=== PATIENT | male | born 1955 | race Caucasian/White ===

== ENCOUNTER → 2018-04-10 | Outpatient (CLI) | payer OTHER ==
[2015-09-11 13:11] VITALS: BP 120/73
[~2018-04-10] MED LIST: DOCU-109 PO; MESA1.2T PO; OXYC-323 PO; OXYC-327 PO; Oxycodone Hcl/Acetaminophen PO; TAMS0.4C97 PO; no meds
--- NOTE | 2018-04-16 15:15 | SLEEP ---
DATE OF STUDY: 04/10/2018 ATTENDING PHYSICIAN: Dr. Calvin Quevedo. The patient is a 62-year-old who weighs 170 pounds and is 70 inches tall with a BMI of 24. The patient's Hammond score was 10. The patient underwent home sleep study performed by [facility]. Total recording time was 526 minutes. During the night study, the patient had 208 obstructive apneas, no central apneas, 48 mixed apneas and 42 hypopneas. The patient's apnea-hypopnea index was 34 per hour. No supine sleep was recorded. Oximetry study revealed an average oxygen saturation of 91% with the lowest of 75%. A 59 minutes were spent in oxygen saturation less than 90% and another 43 minutes with less than 85%. EKG monitoring revealed mean heart rate of 63 beats per minute. IMPRESSION: 1. Severe sleep apnea-hypopnea syndrome with an apnea-hypopnea index of 34 per hour. 2. Severe nocturnal hypoxia secondary to obstructive sleep apnea. RECOMMENDATIONS: 1. The patient should return for in-lab CPAP titration study. 2. Once optimum CPAP pressure is achieved, then follow up in 4-6 weeks to assess compliance with CPAP and to document clinical improvement. 3. Avoid EVALUATION ADVISOR depressants. 4. Cautioned regarding driving until symptoms of sleep apnea have resolved with the above recommendations. PAMELLA NIXON MD DR: KAYLYN/chito JOB#: [id number] / [id number] CALVIN Edmonds MD
== END | disposition home or self-care (01) ==
LOC: RT 10:06
PROVIDERS: ATTEND Internal Medicine Critical Care Medicine
DX: G47.33 Obstructive sleep apnea (adult) (pediatric) (principal)
CPT/HCPCS: G0399

== ENCOUNTER → 2018-05-09 | Outpatient (CLI) | payer OTHER ==
[2015-09-11 13:11] VITALS: BP 120/73
[~2018-05-09] MED LIST changes: +ZOLPIDEM 5 MG TABLET. PO ONE
--- NOTE | 2018-05-10 10:05 | SLEEP ---
DATE OF STUDY: 05/09/2018 ATTENDING PHYSICIAN: Dr. Joe Quevedo. The patient is 62 years old who weighs 170 pounds with a BMI of 24. The patient had a home sleep study and was found to have severe STEPHANY at an AHI of 34 per hour along with nocturnal hypoxia. The patient returned for in-lab CPAP titration study. During the night study, the patient spent 392 minutes in bed and slept for 327 minutes with a sleep efficiency of 83%. Sleep latency was 20 minutes with a REM latency of 68 minutes. Overall, sleep architecture showed normal stage 1 sleep, slightly reduced stage 2 sleep, increased slow wave and increased REM sleep. During the night study, the patient's EKG monitoring revealed normal sinus rhythm, average heart rate was 60 beats per minute. No arrhythmias seen. No PLMS observed. The patient was started on CPAP at 5 cm water and the patient remained throughout the night of the same pressure and slept for 327 minutes. The patient's AHI was reduced to 3 per hour and oxygen saturation remained above 90% with one spot desaturation of 87%. The patient used medium sized nasal pillows. IMPRESSION: 1. Severe sleep apnea diagnosed by home sleep study. 2. No evidence of period limb movements in sleep. RECOMMENDATIONS: 1. CPAP at 5 cm water completely eliminated the patient's sleep apnea and should be used on a nightly basis. 2. Follow up in 4-6 weeks to assess compliance with CPAP and to document clinical improvement. 3. Avoid MUSHROOM PRESS OPERATOR depressants. 4. Caution regarding driving until symptoms of sleep apnea resolve with CPAP. PAMELLA NIXON MD DR: KAYLYN/chito JOB#: [id number] / [id number] Dr. Joe Zheng
== END | disposition home or self-care (01) ==
LOC: RT 18:24
PROVIDERS: ATTEND Internal Medicine Critical Care Medicine
DX: G47.33 Obstructive sleep apnea (adult) (pediatric) (principal)
CPT/HCPCS: 95811

== ENCOUNTER 2018-10-13 05:28 | Emergency (ER) | payer OTHER ==
[~2018-10-13] VITALS: Ht 177.8 cm; Wt 78.0 kg
[~2018-10-13 05:28] MED LIST changes: +LIALDA1.2 GM PO; -MESA1.2T PO; -OXYC-323 PO; -OXYC-327 PO; +OXYC1TAB15 PO; +OXYC1TAB19 PO; -ZOLPIDEM 5 MG TABLET. PO ONE
[2018-10-13 05:58] LABS: BASO # 0.1 x10^3/uL (0.0-0.2); BASO % 1 % (0-3); EOS # 0.4 x10^3/uL (0.0-0.7); EOS % 5 % (0-3); HEMATOCRIT 45.5 % (39.0-53.0); HEMOGLOBIN 15.4 g/dL (13.0-17.5); LYMPH # 2.8 x10^3/uL (1.0-4.8); LYMPH % 39 % (24-48); MEAN CORPUSCULAR HEMOGLOBIN 33 pg (25-35); MEAN CORPUSCULAR HGB CONC 34 g/dL (31-37); MEAN CORPUSCULAR VOLUME 96 fL (79-100); MONO # 0.8 x10^3/uL (0.0-1.1); MONO % 11 % (0-9); NEUT # 3.1 x10^3uL (1.8-7.7); NEUT % 44 % (31-73); PLATELET COUNT 177 x10^3/uL (140-400); RED BLOOD COUNT 4.74 x10^6/uL (4.30-5.70); RED CELL DISTRIBUTION WIDTH 13.6 % (11.5-14.5); WHITE BLOOD COUNT 7.2 x10^3/uL (4.0-11.0)
[2018-10-13 06:11] LABS: CALCIUM 8.7 mg/dL (8.5-10.1); CREATININE 1.1 mg/dL (0.7-1.3); GFR 67.6; POTASSIUM 4.2 mmol/L (3.5-5.1)
--- NOTE | 2018-10-13 06:11 | PHYS DOC ---
Past Medical History Past Medical History: Other Additional Past Medical Histor: insomnia, colitis, kidney stone (EVELYN PRICE DO) Additional Past Surgical Histo: Knee surg x5, back x2, neck x2, ocular (EVELYN PRICE DO) Additional Information: 07/06pk daily Alcohol Use: Rarely Drug Use: None (EVELYN PRICE DO) Adult General Chief Complaint Chief Complaint: FLANK PAIN HPI HPI 63-year-old male presents with report of left flank pain with radiation to left lower abdominal pain which started suddenly this morning. Patient does report some associated nausea. Patient reports he did have some diarrhea yesterday. Patient does have a history of colitis and reports this pain is more significant than his normal. Patient does report history of kidney stones approximately 5-6 years ago. Patient denies any dysuria or hematuria at this time. Denies rash. Denies trauma. Denies fever/chills. (EVELYN PRICE DO) Review of Systems Review of Systems Constitutional: Denies fever or chills [] Eyes: Denies change in visual acuity, redness, or eye pain [] HENT: Denies nasal congestion or sore throat [] Respiratory: Denies cough or shortness of breath [] Cardiovascular: Denies chest pain or palpitations GI: Reports abdominal pain, diarrhea, and nausea; denies vomiting : Denies dysuria or hematuria [] Musculoskeletal: Reports left flank pain; denies joint pain Integument: Denies rash or skin lesions [] Neurologic: Denies headache, focal weakness or sensory changes [] Complete systems were reviewed and found to be within normal limits, except as documented in this note. (EVELYN PRICE DO) Current Medications Current Medications Current Medications Medications (Trade) Dose Ordered Sig/[facility] Start Time Stop Time Status Last Admin Dose Admin Fentanyl Citrate (Fentanyl 2ml Vial) 50 mcg 1X ONCE 10/13/18 06:30 10/13/18 06:31 DC 10/13/18 05:59 50 MCG Hydromorphone HCl (Dilaudid) 1 mg 1X ONCE 10/13/18 08:15 10/13/18 08:16 DC 10/13/18 08:10 1 MG Ketorolac Tromethamine (Toradol 15mg Vial) 10 mg 1X ONCE 10/13/18 06:15 10/13/18 06:16 DC 10/13/18 06:04 10 MG Metoclopramide HCl (Reglan Vial) 10 mg 1X ONCE 10/13/18 06:15 10/13/18 06:16 DC 10/13/18 06:00 10 MG Sodium Chloride 1,000 ml @ 1,000 mls/hr 1X ONCE 10/13/18 06:30 10/13/18 07:29 DC 10/13/18 05:57 1,000 MLS/HR Tamsulosin HCl (Flomax) 0.4 mg 1X ONCE 10/13/18 08:30 10/13/18 08:31 DC (ROBBIE SERVIN MD) Allergies Allergies Allergies Coded Allergies Type Severity Reaction Last Updated Verified No Known Drug Allergies 09/09/15 No (ROBBIE SERVIN MD) Physical Exam Physical Exam Constitutional: Well developed, well nourished, appears uncomfortable HENT: Normocephalic, atraumatic, oropharynx moist Eyes: Conjunctiva normal, no discharge. [] Neck: Normal range of motion, no tenderness, supple Cardiovascular: Heart rate regular rhythm, no murmur [] Lungs & Thorax: Bilateral breath sounds clear to auscultation [] Abdomen: Soft, mild left lower quadrant tenderness Skin: Warm, dry, no erythema, no rash. [] Back: No tenderness, left CVA tenderness. [] Extremities: No calves tenderness, ROM intact, no edema. [] Neurologic: Alert and oriented X 3, normal motor function, normal sensory function, no focal deficits noted. [] Psychologic: Affect normal, judgement normal, mood normal. [] (PRICE,EVELYN Hanks DO) Current Patient Data Vital Signs Vital Signs Date Time Temp Pulse Resp B/P (MAP) Pulse Ox O2 Delivery O2 Flow Rate FiO2 10/13/18 06:53 13 99 Room Air 10/13/18 05:45 97.5 77 168/103 (124) 97.5 (ROBBIE SERVIN MD) Lab Values Laboratory Tests Test 10/13/18 05:37 White Blood Count 7.2 x10^3/uL (4.0-11.0) Red Blood Count 4.74 x10^6/uL (4.30-5.70) Hemoglobin 15.4 g/dL (13.0-17.5) Hematocrit 45.5 % (39.0-53.0) Mean Corpuscular Volume 96 fL (79-100) Mean Corpuscular Hemoglobin 33 pg (25-35) Mean Corpuscular Hemoglobin Concent 34 g/dL (31-37) Red Cell Distribution Width 13.6 % (11.5-14.5) Platelet Count 177 x10^3/uL (140-400) Neutrophils (%) (Auto) 44 % (31-73) Lymphocytes (%) (Auto) 39 % (24-48) Monocytes (%) (Auto) 11 % (0-9) H Eosinophils (%) (Auto) 5 % (0-3) H Basophils (%) (Auto) 1 % (0-3) Neutrophils # (Auto) 3.1 x10^3uL (1.8-7.7) Lymphocytes # (Auto) 2.8 x10^3/uL (1.0-4.8) Monocytes # (Auto) 0.8 x10^3/uL (0.0-1.1) Eosinophils # (Auto) 0.4 x10^3/uL (0.0-0.7) Basophils # (Auto) 0.1 x10^3/uL (0.0-0.2) Urine Collection Type Void Urine Color Yellow Urine Clarity Clear Urine pH 6.5 Urine Specific [place] 1.020 Urine Protein Negative mg/dL (NEG-TRACE) Urine Glucose (UA) Negative mg/dL (NEG) Urine Ketones (Stick) Negative mg/dL (NEG) Urine Blood Large (NEG) Urine Nitrite Negative (NEG) Urine Bilirubin Negative (NEG) Urine Urobilinogen Dipstick 0.2 mg/dL (0.2 mg/dL) Urine Leukocyte Esterase Negative (NEG) Urine RBC Tntc /HPF (0-2) Urine WBC Occ /HPF (0-4) Urine Squamous Epithelial Cells Few /LPF Urine Bacteria 0 /HPF (0-FEW) Urine Mucus Slight /LPF Sodium Level 141 mmol/L (136-145) Potassium Level 4.2 mmol/L (3.5-5.1) Chloride Level 104 mmol/L (98-107) Carbon Dioxide Level 27 mmol/L (21-32) Anion Gap 10 (6-14) Blood Urea Nitrogen 21 mg/dL (8-26) Creatinine 1.1 mg/dL (0.7-1.3) Estimated GFR (Cockcroft-Gault) 67.6 BUN/Creatinine Ratio 19 (6-20) Glucose Level 106 mg/dL (70-99) H Calcium Level 8.7 mg/dL (8.5-10.1) Magnesium Level 2.0 mg/dL (1.8-2.4) Total Bilirubin 0.4 mg/dL (0.2-1.0) Aspartate Amino Transferase (AST) 14 U/L (15-37) L Alanine Aminotransferase (ALT) 16 U/L (16-63) Alkaline Phosphatase 119 U/L (46-116) H Total Protein 7.5 g/dL (6.4-8.2) Albumin 3.7 g/dL (3.4-5.0) Albumin/Globulin Ratio 1.0 (1.0-1.7) Lipase 106 U/L (73-393) Laboratory Tests 10/13/18 05:37 Laboratory Tests 10/13/18 05:37 (ROBBIE SERVIN MD) EKG EKG [] (EVELYN PRICE DO) Radiology/Procedures Radiology/Procedures [] (EVELYN PRICE DO) Radiology/Procedures [facility] [address] [place], [place] [id number] IMAGING REPORT Signed PATIENT: CARROL RADFORD ACCOUNT: [id number] : 1955 LOCATION: ER AGE: 63 SEX: M EXAM STATUS: REG ER ORD. PHYSICIAN: EVELYN PRICE DO REASON: left flank/LLQ pain eval for ureteral calculi PROCEDURE: CT ABDOMEN PELVIS WO CONTRAST CT abdomen and pelvis without contrast. HISTORY: Left flank pain, left lower quadrant pain CT scan the abdomen pelvis was done without contrast. There is a small nodule in the right lung base. There is no effusion. There is mild atelectasis or groundglass infiltrate along the diaphragm on the left. There is a calcified granuloma in the right lower lobe. The lung nodule is unchanged from an old study. There is a cyst in the left liver. No other liver lesion is noted. There are granulomatous calcifications in the spleen. Adrenal glands and pancreas are unremarkable. There is no renal mass or intrarenal calculus. There is a 5 mm nonobstructing calculus at the left ureterovesical junction. Bowel pattern of the abdomen is normal. Appendix is normal. There is a diverticulum on the left side of the bladder. There is mild diverticulosis without diverticulitis. There is no small bowel obstruction. There is no adenopathy. IMPRESSION: 1. 5 mm calculus at the left ureterovesical junction although without significant hydronephrosis. Electronically signed by: Surya Sanchez MD (10/13/2018 7:59 AM) [facility] DICTATED and SIGNED BY: SURYA SANCHEZ MD DATE: 10/13/18 0759 (ROBBIE SERVIN MD) Course & Med Decision Making Course & Med Decision Making Patient presents with left flank pain with radiation to left lower quadrant. Patient does have history of remote kidney stones as well as history of colitis. Denies known trauma. Denies rash. Labs obtained and pending. CT abdomen /pelvis also pending. Symptomatic treatment provided. IV fluid hydration given. Sign out given to Dr. Servin for further evaluation and final disposition. Discussed current findings and plan with patient and family, who acknowledge understanding and agreement. (EVELYN PRICE DO) Course & Med Decision Making @0830: Evaluation of patient in ER showed 63-year-old male patient with complaining of left flank pain. Patient treated with Toradol and fentanyl by Dr. Price but continued to complaining of pain and had 2 doses of Dilaudid with partial improvement of his pain. Patient had 5 mm stone in left UVJ junction without sign of obstruction or hydronephrosis. Because patient needed several doses of pain medications, I offered him admission but he wants to try outpatient treatment. Patient was advised to increase his activity and fluid intake, strain all of his urine, follow up with on-call urologist and return to ER if not getting better. (ROBBIE SERVIN MD) Dragon Disclaimer Dragon Disclaimer This electronic medical record was generated, in whole or in part, using a voice recognition dictation system. (EVELYN PRICE DO) Departure Departure Impression: Primary Impression: Flank pain Additional Impressions: Renal colic Ureterolithiasis Hematuria Disposition: HOME, SELF-CARE (at 0830) Condition: IMPROVED Referrals: CALVIN SHAFFER MD (PCP) ANUEL ROCA MD Patient Instructions: Diet for Kidney Stones, Kidney Stones Additional Instructions: Drink plenty of liquids Follow-up with your primary care physician in 3-5 days Return to ER if not getting better Strain all of your urine Follow-up with on-call urologist in one or 2 days Scripts Ondansetron Hcl (ZOFRAN) 4 Mg Tablet 1 TAB PO PRN Q6-8HRS for nausea, #12 TAB Prov: ROBBIE SERVIN MD 10/13/18 Tamsulosin Hcl (FLOMAX) 0.4 Mg Cap.er.24h 0.4 MG PO DAILY, #14 TAB Prov: ROBBIE SERVIN MD 10/13/18 Hydrocodone/Apap 5-325 (NORCO 5-325 TABLET) 1 Each Tablet 1-2 EACH PO PRN Q6HRS PRN for PAIN, #15 as needed for pain Prov: ROBBIE SERVIN MD 10/13/18 Ibuprofen (IBUPROFEN) 800 Mg Tablet 800 MG PO PRN Q8HRS PRN for INFLAMMATION, #20 TAB Prov: ROBBIE SERVIN MD 10/13/18 Problem Qualifiers EVELYN PRICE DO Oct 13, 2018 06:11 ROBBIE SERVIN MD Oct 13, 2018 08:35
[2018-10-13 06:14] LABS: BILIRUBIN,URINE NEGATIVE (NEG); CLARITY,URINE CLEAR; COLOR,URINE YELLOW; NITRITE,URINE NEGATIVE (NEG); PH,URINE 6.5; PROTEIN,URINE NEGATIVE (NEG-TRACE); UROBILINOGEN,URINE 0.2 mg/dL (0.2 mg/dL)
[2018-10-13 06:15] LABS: RBC,URINE TNTC /HPF (0-2); SQUAMOUS EPITHELIAL CELL,UR FEW /LPF
[2018-10-13] MEDS ORDERED: METOCLOPRAMIDE HCL 10 MG/2 ML VIAL. IV ONE (06:15)
[2018-10-13] MEDS ORDERED: KETOROLAC 15 MG/ML VIAL. IV ONE (06:15)
[2018-10-13 06:16] LABS: ALBUMIN 3.7 g/dL (3.4-5.0); BACTERIA,URINE 0 /HPF (0-FEW); TOTAL BILIRUBIN 0.4 mg/dL (0.2-1.0); TOTAL PROTEIN 7.5 g/dL (6.4-8.2); WBC,URINE OCC /HPF (0-4)
[2018-10-13] MEDS ORDERED: fentaNYL PF VIAL 100 MCG/2 ML VIAL IV ONE (06:30)
[2018-10-13] MEDS ORDERED: IV NORMAL SALINE 1000ML BAG 1,000 ML IV ONE (06:30)
[2018-10-13] MEDS ORDERED: HYDROmorphone 2 MG/ML VIAL ONE (06:50)
[2018-10-13] MEDS ORDERED: HYDROmorphone 2 MG/ML VIAL IV ONE ×2 (07:00→08:15)
[2018-10-13] MEDS ORDERED: HYDROmorphone 2 MG/ML VIAL IM ONE (07:00)
--- NOTE | 2018-10-13 08:01 | RAD ---
CT abdomen and pelvis without contrast. HISTORY: Left flank pain, left lower quadrant pain CT scan the abdomen pelvis was done without contrast. There is a small nodule in the right lung base. There is no effusion. There is mild atelectasis or groundglass infiltrate along the diaphragm on the left. There is a calcified granuloma in the right lower lobe. The lung nodule is unchanged from an old study. There is a cyst in the left liver. No other liver lesion is noted. There are granulomatous calcifications in the spleen. Adrenal glands and pancreas are unremarkable. There is no renal mass or intrarenal calculus. There is a 5 mm nonobstructing calculus at the left ureterovesical junction. Bowel pattern of the abdomen is normal. Appendix is normal. There is a diverticulum on the left side of the bladder. There is mild diverticulosis without diverticulitis. There is no small bowel obstruction. There is no adenopathy. IMPRESSION: 1. 5 mm calculus at the left ureterovesical junction although without significant hydronephrosis. Electronically signed by: Surya Sanchez MD (10/13/2018 7:59 AM) [facility]
[2018-10-13] MEDS ORDERED: TAMSULOSIN 0.4 MG CAP.ER.24H. PO ONE (08:30)
[2018-10-13] MEDS ORDERED: ONDA4TAB7 PO (08:35)
[2018-10-13] MEDS ORDERED: TAMS0.4C97 PO (08:35)
[2018-10-13] MEDS ORDERED: IBUP-1060 PO (08:35)
[2018-10-13] MEDS ORDERED: HYDR-3164 PO (08:35)
[2018-10-13 09:00] VITALS: BP 131/73
== END 2018-10-13 09:05 | disposition home or self-care (01) ==
LOC: ER 05:28
DX: N20.1 Calculus of ureter (principal); N23 Unspecified renal colic; R19.7 Diarrhea, unspecified; R31.9 Hematuria, unspecified; F17.200 Nicotine dependence, unspecified, uncomplicated
CPT/HCPCS: 36415; 74176; 80053; 81001; 83690; 83735; 85025; 96361; 96374; 96375; 96376; 99285; J1170; J1885; J2765; J3010; J7030